=== PATIENT | female | born 1985 | race African-American/Black ===

== ENCOUNTER 2022-08-09 14:10 | Emergency (ER) | payer OTHER, SELFPAY ==
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
[2022-08-09 14:49] VITALS: BP 143/82; PULSE 88; RESP 20; TEMP 36.4; O2SAT 100
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
== END 2022-08-09 17:48 | disposition home or self-care (01) ==
PROVIDERS: Emergency Provider Physician Assistant
DX: S16.1XXA Strain of muscle, fascia and tendon at neck level, initial encounter (principal); S39.012A Strain of muscle, fascia and tendon of lower back, initial encounter; F41.9 Anxiety disorder, unspecified; F32.9 Major depressive disorder, single episode, unspecified; V43.52XA Car driver injured in collision with other type car in traffic accident, initial encounter
CPT/HCPCS: 70450; 72072; 72110; 72125; 99284